=== PATIENT | male | born 1980 | race Caucasian/White ===

== ENCOUNTER 2016-09-08 15:54 | Outpatient (RCR) | payer OTHER ==
[~2016-09-08] VITALS: Ht 177.8 cm; Wt 90.7 kg
[~2016-09-08 15:54] MED LIST: CEPHALEXIN250 M2 ORAL; NEURONTIN600 MG ORAL; NORCO 10-325 T1 EACH ORAL
== END 2016-09-30 | disposition home or self-care (01) ==
LOC: WCC 15:54
DX: L97.822 Non-pressure chronic ulcer of other part of left lower leg with fat layer exposed (principal); L97.122 Non-pressure chronic ulcer of left thigh with fat layer exposed; L97.821 Non-pressure chronic ulcer of other part of left lower leg limited to breakdown of skin; L97.121 Non-pressure chronic ulcer of left thigh limited to breakdown of skin
CPT/HCPCS: 15271; 15272; G0463; Q4124

== ENCOUNTER 2016-10-06 11:00 | Outpatient (RCR) | payer OTHER ==
[~2016-10-06] VITALS: Ht 177.8 cm; Wt 90.7 kg
[2016-10-10] MEDS ORDERED: Silver Nitrate Stick TOPIC ONE (14:15)
[2016-10-15] MEDS ORDERED: Silver Nitrate Stick TOPIC ONE (16:30)
[2016-10-30] MEDS ORDERED: Silver Nitrate Stick TOPIC ONE (10:45)
== END 2016-10-28 | disposition home or self-care (01) ==
LOC: WCC 11:00
DX: L97.821 Non-pressure chronic ulcer of other part of left lower leg limited to breakdown of skin (principal); L97.121 Non-pressure chronic ulcer of left thigh limited to breakdown of skin
CPT/HCPCS: 11042; 17250; 87070; 87181; 87205

== ENCOUNTER 2016-11-03 09:30 | Outpatient (RCR) | payer OTHER ==
[~2016-11-03] VITALS: Ht 177.8 cm; Wt 90.7 kg
[2016-11-07] MEDS ORDERED: Silver Nitrate Stick TOPIC ONE (16:45)
== END 2016-11-28 | disposition home or self-care (01) ==
LOC: WCC 09:30
DX: L97.822 Non-pressure chronic ulcer of other part of left lower leg with fat layer exposed (principal); L97.122 Non-pressure chronic ulcer of left thigh with fat layer exposed; L97.821 Non-pressure chronic ulcer of other part of left lower leg limited to breakdown of skin; L97.121 Non-pressure chronic ulcer of left thigh limited to breakdown of skin
CPT/HCPCS: 17250; 87070; 87181; 87205

== ENCOUNTER 2016-12-15 09:29 | Outpatient (RCR) | payer OTHER | END 2016-12-28 | disposition home or self-care (01) | LOC: WCC 09:29 | DX: L97.822 Non-pressure chronic ulcer of other part of left lower leg with fat layer exposed (principal); L97.122 Non-pressure chronic ulcer of left thigh with fat layer exposed; L97.821 Non-pressure chronic ulcer of other part of left lower leg limited to breakdown of skin; L97.121 Non-pressure chronic ulcer of left thigh limited to breakdown of skin | CPT/HCPCS: 11042; G0463 ==

== ENCOUNTER 2017-01-05 09:00 | Outpatient (RCR) | payer OTHER | END 2017-01-28 | disposition home or self-care (01) | LOC: WCC 09:00 | DX: L97.822 Non-pressure chronic ulcer of other part of left lower leg with fat layer exposed (principal); L97.122 Non-pressure chronic ulcer of left thigh with fat layer exposed; L97.821 Non-pressure chronic ulcer of other part of left lower leg limited to breakdown of skin; L97.121 Non-pressure chronic ulcer of left thigh limited to breakdown of skin ==

== ENCOUNTER 2017-03-09 09:00 | Outpatient (RCR) | payer OTHER ==
[~2017-03-09] VITALS: Ht 177.8 cm; Wt 93.4 kg
== END 2017-03-30 | disposition home or self-care (01) ==
LOC: WCC 09:00
DX: L97.124 Non-pressure chronic ulcer of left thigh with necrosis of bone (principal); M21.372 Foot drop, left foot
CPT/HCPCS: 11044; 17250; 87070; 87181; 87205

== ENCOUNTER 2017-04-06 09:00 | Outpatient (RCR) | payer OTHER | END 2017-04-30 | disposition home or self-care (01) | LOC: WCC 09:00 | DX: L97.124 Non-pressure chronic ulcer of left thigh with necrosis of bone (principal); L97.122 Non-pressure chronic ulcer of left thigh with fat layer exposed; M21.372 Foot drop, left foot | CPT/HCPCS: 11042; 11044; 87070; 87181; 87205 ==

== ENCOUNTER 2017-05-11 09:00 | Outpatient (RCR) | payer OTHER ==
[2017-05-20] MEDS ORDERED: ZINC50 MG ORAL (13:42)
[2017-05-20] MEDS ORDERED: VITAMIN C500 M1 ORAL (13:42)
== END 2017-05-30 | disposition home or self-care (01) ==
LOC: WCC 09:00
DX: L97.124 Non-pressure chronic ulcer of left thigh with necrosis of bone (principal); L97.122 Non-pressure chronic ulcer of left thigh with fat layer exposed; M21.372 Foot drop, left foot

== ENCOUNTER 2017-05-22 08:46 | Day surgery (SDC) | payer OTHER ==
[~2017-05-22] VITALS: Ht 177.8 cm; Wt 90.7 kg
[2017-05-22] VITALS (12 sets, daily range): BP systolic 106–119; BP diastolic 57–79
--- NOTE | 2017-05-22 07:19 | Pre-Procedure Note/Attestation ---
Pre-Procedure Note/Attestation Complete Prior to Procedure Planned Procedure: left Procedure Narrative: knee incision and drainage Indications for Procedure Pre-Operative Diagnosis: left knee nonhealing wound Attestation I attest that I discussed the nature of the procedure; its benefits; risks and complications; and alternatives (and the risks and benefits of such alternatives ), prior to the procedure, with the patient (or the patient's legal community health representative). I attest that, if there was a reasonable possibility of needing a blood transfusion, the patient (or the patient's legal community health representative) was given the [facility] standardized written summary, pursuant to the [place] Blood Safety Act ([place] Health and Safety Code # 1645, as amended). I attest that I re-evaluated the patient just prior to the surgery and that there has been no change in the patient's H&P, except as documented below: ELLEN BATES May 22, 2017 07:19
--- NOTE | 2017-05-22 07:20 | Operative Note - PDOC ---
Operative Note Operative Note Pre-op Diagnosis: left knee nonhealing wound Procedure: see op report Post-op Diagnosis: same as pre-op plus Operative Findings: consistent w/pre-op dx studies Anesthesia: MAC Specimen: none Complications: none Condition: stable Estimated Blood Loss: none Implant(s) used?: ELLEN Guzman May 22, 2017 07:20
[~2017-05-22 08:46] MED LIST changes: +D5 1/2NS 1,000 ML IV SCH; +HYDROmorphone 1mg/ml Carpuject SUBQ PRN; +Norco 5mg/325mg tab ORAL PRN; +Tylenol #3 tab (300mg/30mg) ORAL PRN; +VITAMIN C500 M1 ORAL; +ZINC50 MG ORAL; +ceFAZolin 1gm in D5W 55ml IVP ONE; +celeBREX 200mg Cap **SURGERY PATIENTS ONLY ORAL ONE; +oxyCONTIN 20mg tab ORAL ONE
[2017-05-22] MEDS ORDERED: Bacitracin 50000 Units Vial ONE (12:11)
[2017-05-22] MEDS ORDERED: NeoSporin Gu Irrig 1ml Amp IRRIG ONE (12:12)
[2017-05-22] MEDS ORDERED: Propofol 200mg/20ml IV ONE (12:30)
[2017-05-22] MEDS ORDERED: Morphine Sulfate 10mg/ml Inj ONE (12:30)
[2017-05-22] MEDS ORDERED: Lidocaine 1% MPF 10mg/ml 5ml ONE (12:30)
[2017-05-22] MEDS ORDERED: Midazolam 2mg/2ml Inj ONE (12:30)
[2017-05-22] MEDS ORDERED: LR 1000ml ONE (12:30)
[2017-05-22] MEDS ORDERED: fentaNYL 100 mcg/2 mL IV ONE (12:30)
[2017-05-22] MEDS ORDERED: Metoclopramide 10mg/2ml Inj ONE (12:30)
[2017-05-22] MEDS ORDERED: Vancomycin 1gm inj IVPB ONE (13:04)
--- NOTE | 2017-05-22 14:30 | 48 Hour Post Anesthesia Eval ---
Post Anesthesia Evaluation Procedure: Knee exploration Date of Evaluation: May 22, 2017 Time of Evaluation: 14:30 Blood Pressure Systolic: 115 0: 68 Pulse Rate: 70 Respiratory Rate: 14 O2 Sat by Pulse Oximetry: 100 Airway: patent Nausea: No Vomiting: No Hydration Status: adequate Cardiopulmonary Status: stable Mental Status/LOC: patient returned to baseline Follow-up Care/Observations: ortho Post-Anesthesia Complications: none Follow-up care needed: N/A CHARIS MATOS CRNA May 22, 2017 14:30
--- NOTE | 2017-05-22 14:36 | Anethesia Preoperative Eval ---
Anesthesia Pre-op PMH/ROS General Date of Evaluation: May 22, 2017 Time of Evaluation: 12:30 Anesthesiologist: octavio ASA Score: ASA 2 Mallampati Score Class I : Soft palate, uvula, fauces, pillars visible Class II: Soft palate, uvula, fauces visible Class III: Soft palate, base of uvula visible Class IV: Only hard plate visible Mallampati Classification: Class III Surgeon: tara Diagnosis: foreign body left knee Surgical Procedure: knee exploration Anesthesia History: none Family History: no anesthesia problems Allergies: Coded Allergies: NO KNOWN ALLERGIES (Verified Allergy, Unknown, 06/18/16) Medications: see eMAR Past Medical History Cardiovascular: Denies: HTN, CAD, [place], valve dz, arrhythmia, other Pulmonary: Denies: asthma, COPD, DONNA, other Gastrointestinal/Genitourinary: Denies: GERD, CRI, ESRD, other Neurologic/Psychiatric: Denies: dementia, CVA, depression/anxiety, TIA, other Endocrine: Denies: DM, hypothyroidism, steroids, other HEENT: Denies: cataract (L), cataract (R), glaucoma, [place] (L), [place] (R), other Hematology/Immune: Denies: anemia, DVT, bleeding disorder, other Musculoskeletal/Integumentary: Denies: OA, RA, DJD, DDD, edema, other PMH Narrative: chronic wound infection PSxH Narrative: multiple knee surgery Anesthesia Pre-op Phys. Exam Physician Exam Last Vital Signs Date Time Temp Pulse Resp B/P (MAP) Pulse Ox O2 Delivery O2 Flow Rate FiO2 05/22/17 14:30 70 14 100 05/22/17 14:28 97.4 116/79 Room Air 05/22/17 13:50 1.0 Constitutional: NAD Neurologic: CN 2-12 intact Cardiovascular: RRR Respiratory: CTA Gastrointestinal: S/NT/ND Airway Exam Mallampati Classification 2 Mallampati Score: Class II MO: full ROM: full Dentures: no upper, no lower Anesthesia Pre-op A/P Studies Pre-op Studies: EKG - Sr Risk Assessment & Plan Plan: General Status Change Before Surgery: No Pre-Antibiotics Drug: ancef Given Within 1 Hr of Incision: Yes Time Given: 12:30 CHARIS MATOS CRNA May 22, 2017 14:36
--- NOTE | 2017-05-22 15:45 | Diagnostic Imaging Report ---
Indication: PAIN, intraoperative Technique: Digital intraoperative images Comparison: None Findings: Intraoperative images demonstrate localization of screw removal device Impression: Intraoperative imaging, as described
--- NOTE | 2017-05-22 17:37 | 48 Hour Post Anesthesia Eval ---
Post Anesthesia Evaluation Procedure: Knee exploration Date of Evaluation: May 22, 2017 Time of Evaluation: 17:36 Blood Pressure Systolic: 113 0: 74 Pulse Rate: 89 Respiratory Rate: 14 O2 Sat by Pulse Oximetry: 100 Airway: patent Nausea: No Vomiting: No Hydration Status: adequate Cardiopulmonary Status: stable Mental Status/LOC: patient returned to baseline Follow-up Care/Observations: surgery Post-Anesthesia Complications: none Follow-up care needed: N/A CHARIS MATOS CRNA May 22, 2017 17:37
--- NOTE | 2017-05-22 17:38 | Immediate Post-Op Evaluation ---
Immediate Post-Op Evalulation Immediate Post-Op Evalulation Procedure: Knee exploration Date of Evaluation: May 22, 2017 Time of Evaluation: 13:33 IV Fluids: 600 Blood Pressure Systolic: 113 Blood Pressure Diastolic: 57 Pulse Rate: 90 Respiratory Rate: 14 O2 Sat by Pulse Oximetry: 100 Temperature (Fahrenheit): 97.5 Nausea: No Vomiting: No Complications none Patient Status: awake, reacts, patent Hydration Status: adequate Drug: ancef Given Within 1 Hr of Incision: Yes Time Given: 12:30 CHARIS MATOS CRNA May 22, 2017 17:38
--- NOTE | 2017-05-22 21:45 | Operative Note - Dictated ---
DATE OF OPERATION: 05/22/2017 NOTE: INCOMPLETE DICTATION. DICTATION ENDS ABRUPTLY PREOPERATIVE DIAGNOSIS: Left knee Fede Pitts M.D. DR: SABAS JOB#: [id number] CC:
--- NOTE | 2017-05-22 23:30 | Operative Note - Dictated ---
DATE OF OPERATION: 05/22/2017 PREOPERATIVE DIAGNOSES: 1. Status post closed treatment of left knee dislocation. 2. Chronic left knee wound. POSTOPERATIVE DIAGNOSES: 1. Status post closed treatment of left knee dislocation. 2. Chronic left knee wound. PROCEDURES: 1. Incision and drainage, left knee, deep into the distal femoral cortical bone. 2. Removal of foreign body (#2 FiberWire). SURGEON: Fede Pitts M.D. ANESTHESIA: General. Indication For Procedure: The patient is a pleasant gentleman, who has had a complicated medical history, but he has had these 2 areas where the skin does not seem to be healing thoroughly. He had extensive plastic surgery treatment without any improvement, and, therefore, it was felt that maybe some of this is coming from may be interference screw that was used for the medial patellofemoral ligament reconstruction. Therefore, after failing conservative treatment, he elected to undergo exploration of this non-healing area of the left knee. Risks, limitations, expectations, and complications of the procedure were discussed in detail. All questions were addressed. Description Of Procedure: An informed consent was obtained. The patient was taken to the operative room and placed supine under general anesthesia. The 2 areas where the skin did not heal was localized. A connecting line through the tube was then drawn out. The skin was incised. Blunt dissection down through this granulation tissue was performed. There did not seem to be any gross foreign body; however, deep into it, there was some #2 FiberWire, which was used for the femoral fixation for the MPF ligament reconstruction. This FiberWire was not attached to anything and it was removed. Once this was done, the femoral hole where the interference screw was placed was identified. Curette was then placed into this hole and any pseudomembrane was debrided. Once this thing was completely debrided, attention was turned towards the irrigation and debridement portion. Irrigation and debridement of the knee was performed. Once the irrigation and debridement was completed, vancomycin powder was then placed into the distal femoral shaft. Once this was done, 3-0 nylon sutures were then used in an interrupted fashion to close the skin. Compression dressing was applied. The patient was awoken and taken to the recovery room with stable vital signs. ESTIMATED BLOOD LOSS: Minimal. COMPLICATIONS: None. SPECIMENS: #2 FiberWire. IMPLANTS: None. Fede Pitts M.D. DR: SABAS JOB#: [id number] CC:
== END 2017-05-22 15:05 | disposition home or self-care (01) ==
LOC: SUR 08:46
DX: Z47.2 Encounter for removal of internal fixation device (principal); T81.31XA Disruption of external operation (surgical) wound, not elsewhere classified, initial encounter; Y83.4 Other reconstructive surgery as the cause of abnormal reaction of the patient, or of later complication, without mention of misadventure at the time of the procedure; Y92.009 Unspecified place in unspecified non-institutional (private) residence as the place of occurrence of the external cause
CPT/HCPCS: 20680; 73560; 76000; 87070; 87181; 87205; J2250; J2270; J2405; J2704; J2765; J3010; J3370; J7120; 94003; 94150